=== PATIENT | female | born 1980 | race Caucasian/White ===

== ENCOUNTER 2017-05-16 16:32 | Emergency (ER) | payer MEDICAID ==
[~2017-05-16] VITALS: Ht 154.9 cm; Wt 80.9 kg
[~2017-05-16 16:32] MED LIST: [UNRECOGNIZED DRUG - REMARK]
[2017-05-16] MEDS ORDERED: ASPIRIN 325 MG TAB PO STA (16:49)
[2017-05-16 16:59] VITALS: Ht 154.9 cm; Wt 80.9 kg
[2017-05-16] MEDS ORDERED: KETOROLAC 30 MG INJ IV STA (17:22)
[2017-05-16] MEDS ORDERED: GABA100C14 PO (17:25)
[2017-05-16 17:33] LABS: BASOPHILS % 0.5 % (0.0-2.0); EOSINOPHILS # 0.2 10^3/ul (0.0-0.5); EOSINOPHILS % 2.5 % (0.0-7.0); HEMATOCRIT 35.6 % (37.0-47.0); HEMOGLOBIN 11.8 g/dl (12.0-16.0); LYMPHOCYTES # 1.9 10^3/ul (0.8-2.9); LYMPHOCYTES % 22.1 % (15.0-51.0); MEAN CORPUSCULAR HEMOGLOBIN 29.8 pg (29.0-33.0); MEAN CORPUSCULAR HGB CONC 33.1 g/dl (32.0-37.0); MEAN CORPUSCULAR VOLUME 89.9 fl (82.0-101.0); MEAN PLATELET VOLUME 11.3 fl (7.4-10.4); MONOCYTE # 0.6 10^3/ul (0.3-0.9); MONOCYTES % 6.4 % (0.0-11.0); NEUTROPHIL # 5.8 10^3/ul (1.6-7.5); NEUTROPHILS % 67.8 % (39.0-77.0); PLATELET COUNT 317 10^3/UL (140-415); RED BLOOD COUNT 3.96 10^6/ul (4.20-5.40); RED CELL DISTRIBUTION WIDTH 14.7 % (11.5-14.5); WHITE BLOOD COUNT 8.6 10^3/ul (4.8-10.8)
[2017-05-16] MEDS ORDERED: INSU100I27 SQ (17:53)
[2017-05-16] MEDS ORDERED: LANT3I SC (17:53)
[2017-05-16] MEDS ORDERED: SIMV20TA PO (17:53)
[2017-05-16 17:56] LABS: ANION GAP 9 (8-16); BLOOD UREA NITROGEN 25 mg/dl (7-20); CALCIUM 8.4 mg/dl (8.4-10.2); CARBON DIOXIDE 25 mmol/L (21-31); CHLORIDE 105 mmol/L (97-110); CREATININE 0.93 mg/dl (0.44-1.00); POTASSIUM 5.2 mmol/L (3.5-5.1); SODIUM 134 mmol/L (135-144)
[2017-05-16 18:00] LABS: GLUCOSE 408 mg/dl (70-220)
--- NOTE | 2017-05-16 18:07 | RADRPT ---
PROCEDURE: XR Chest. CLINICAL INDICATION: Chest pain. TECHNIQUE: Single frontal chest x-ray. COMPARISON: None. FINDINGS: The cardiomediastinal silhouette is unremarkable. There is no congestive heart failure.. No focal i nfiltrate is seen. There is no pleural effusion. There is no pneumothorax. The osseous structures are unremarkable. IMPRESSION: 1. No active disease. RPTAT: HMVK .John Yadav MD, MD Date Time Electronically viewed and signed by .John Yadav MD, MD on 05/16/2017 18:07 .K/
[2017-05-16 18:09] LABS: ADD UMIC YES; UR ASCORBIC ACID NEGATIVE (NEGATIVE); UR BACTERIA FEW /HPF (NONE SEEN); UR BILIRUBIN (Dip) NEGATIVE (NEGATIVE); UR BLOOD (Dip) 2+ mg/dL (NEGATIVE); UR CLARITY CLEAR (CLEAR); UR COLOR STRAW (YELLOW); UR GLUCOSE (Dip) 3+ mg/dL (NEGATIVE); UR KETONES (Dip) NEGATIVE (NEGATIVE); UR LEUKOCYTE ESTERASE (Dip) NEGATIVE Leu/ul (NEGATIVE); UR NITRITE (Dip) NEGATIVE (NEGATIVE); UR RBC 24 /HPF (0-5); UR SPECIFIC GRAVITY (Dip) 1.012 (1.003-1.030); UR TOTAL PROTEIN (Dip) 2+ mg/dl (NEGATIVE); UR UROBILINOGEN (Dip) NEGATIVE (NEGATIVE)
[2017-05-16 18:13] LABS: TROPONIN-I < 0.012 ng/ml (0.00-0.12)
--- NOTE | 2017-05-16 18:53 | ERA ---
ER Documentation Chief Complaint Date/Time DATE: 05/16/17 TIME: 18:47 Chief Complaint cp x 2 days; htn, hyperglycemia 449 blood sugar in the field HPI This is a 37-year-old female with a past medical history of hypertension, hyperlipidemia and poorly controlled diabetes who is presenting with worsening full body pains. The patient has had abdominal pain for 1-2 weeks. She was evaluated by her physician this week where she is found to have elevated blood sugar. She had suprapubic discomfort and a UA was ordered at that time. The patient's physician, Dr. Jaramillo actually called the emergency department today and said that her urine culture came back with 100,000 E. coli, consistent for urinary tract infection. There is question of whether this correlates with her increasing sugar. Her diabetic medications have not been changed recently. The patient has a secondary complaint of chronic unchanged bilateral lower extremity paresthesias, associated with her diabetic peripheral neuropathy. Lastly, she also endorses chest pain that started today. She states that she walks frequently and was walking out on the street today when she developed left -sided chest pain. It is nonradiating. It is moderate and aching in nature. She has never had this pain before. She has never had a heart attack or stroke. She denies family history. The patient endorses no headache or vision changes. She is mildly nauseated but has not vomited. She denies shortness of breath. She has had no changes to bowel movements. ROS All systems reviewed and are negative except as per history of present illness. Medications Home Meds Active Scripts Cephalexin* (Keflex*) 500 Mg Capsule, 500 MG PO BID for 7 Days, CAP Prov:GRACIE GIPSON MD 05/16/17 Reported Medications Simvastatin* (Zocor*) 20 Mg Tablet, 20 MG PO QHS, #30 TAB 05/16/17 Insulin Glargine* (Lantus*) 100 Unit/Ml Soln, 40 UNIT SC QHS, #1 VIAL 05/16/17 Insulin Detemir (Levemir Flextouch) 100 Unit/1 Ml Insuln.pen, 10 UNIT SQ BEFORE MEALS 05/16/17 Gabapentin* (Gabapentin*) 100 Mg Capsule, 200 MG PO TID, #180 CAP 05/16/17 Discontinued Reported Medications [diabetic pill] No Conflict Check 08/11/12 Allergies Allergies: Coded Allergies: No Known Drug Allergies (Verified Allergy, Unknown, 05/16/17) PMhx/Soc History of Surgery: No Anesthesia Reaction: No Hx Neurological Disorder: No Hx Respiratory Disorders: No Hx Cardiac Disorders: Yes (htn) Hx Psychiatric Problems: No Hx Miscellaneous Medical Probl: Yes (dm) Hx Alcohol Use: No Hx Substance Use: No Hx Tobacco Use: No Smoking Status: Never smoker FmHx Family History: diabetes, No coronary disease Physical Exam Vitals Vital Signs Date Time Temp Pulse Resp B/P Pulse Ox O2 Delivery O2 Flow Rate FiO2 05/16/17 23:06 91 18 154/88 100 Room Air 05/16/17 20:00 94 18 196/96 100 Room Air 05/16/17 19:00 97 15 190/95 100 Room Air 05/16/17 18:04 106 18 207/92 100 Room Air 05/16/17 16:59 98.2 107 18 194/96 99 Physical Exam Const: No apparent distress, well-nourished, well-developed Head: Atraumatic Eyes: Normal Conjunctiva ENT: Normal External Ears, Nose and Mouth. Neck: Full range of motion..~ No meningismus. Resp: Clear to auscultation bilaterally Cardio: Regular rhythm, sinus tachycardia, no murmurs Abd: Soft, non distended. suprapubic tenderness. Normal bowel sounds Skin: No petechiae or rashes Back: No midline or flank tenderness Ext: No cyanosis, or edema Neur: Awake and alert, strength, normal sensation Psych: anxious, normal Mood and Affect Result Diagram: 05/16/17 1720 05/16/17 1720 Results 24 hrs Laboratory Tests Test 05/16/17 16:50 05/16/17 17:20 05/16/17 19:02 Urine Color STRAW Urine Clarity CLEAR Urine pH 7.0 Urine Specific Avery 1.012 Urine Ketones NEGATIVEmg/dL Urine Nitrite NEGATIVEmg/dL Urine Bilirubin NEGATIVEmg/dL Urine Urobilinogen NEGATIVEmg/dL Urine Leukocyte Esterase NEGATIVELeu/ul Urine Microscopic RBC 24/HPF Urine Microscopic WBC 3/HPF Urine Bacteria FEW/HPF Urine Hemoglobin 2+mg/dL Urine Glucose 3+mg/dL Urine Total Protein 2+mg/dl White Blood Count 8.610^3/ul Red Blood Count 3.9610^6/ul Hemoglobin 11.8g/dl Hematocrit 35.6% Mean Corpuscular Volume 89.9fl Mean Corpuscular Hemoglobin 29.8pg Mean Corpuscular Hemoglobin Concent 33.1g/dl Red Cell Distribution Width 14.7% Platelet Count 57662^3/UL Mean Platelet Volume 11.3fl Neutrophils % 67.8% Lymphocytes % 22.1% Monocytes % 6.4% Eosinophils % 2.5% Basophils % 0.5% Nucleated Red Blood Cells % 0.0/100WBC Neutrophils # 5.810^3/ul Lymphocytes # 1.910^3/ul Monocytes # 0.610^3/ul Eosinophils # 0.210^3/ul Basophils # 0.010^3/ul Nucleated Red Blood Cells # 0.010^3/ul Sodium Level 134mmol/L Potassium Level 5.2mmol/L Chloride Level 105mmol/L Carbon Dioxide Level 25mmol/L Anion Gap 9 Blood Urea Nitrogen 25mg/dl Creatinine 0.93mg/dl Glucose Level 408mg/dl Calcium Level 8.4mg/dl Troponin I < 0.012ng/ml Bedside Glucose 295mg/dL Current Medications Medications (Trade) Dose Ordered Sig/Jose Route PRN Reason Start Time Stop Time Status Last Admin Dose Admin Aspirin (Aspirin) 325 mg ONCE STAT PO 05/16/17 16:49 05/16/17 17:00 DC 05/16/17 17:44 Ketorolac Tromethamine 30 mg 30 mg ONCE STAT IV 05/16/17 17:22 05/16/17 17:23 DC Sodium Chloride 1,000 ml @ 1,000 mls/hr Q1H ONCE IV 05/16/17 19:00 05/16/17 19:59 DC 05/16/17 19:05 Sodium Chloride (NS) 1,000 ml @ 1,000 mls/hr Q1H ONCE IV 05/16/17 19:00 05/16/17 19:59 DC 05/16/17 19:57 Insulin Human Regular 10 unit 10 unit ONCE ONCE SC 05/16/17 19:00 05/16/17 19:01 DC 05/16/17 19:04 Ceftriaxone Sodium (Rocephin) 50 ml @ 100 mls/hr ONCE ONCE IVPB 05/16/17 21:30 05/16/17 21:59 DC 05/16/17 21:56 Morphine Sulfate (morphine) 4 mg ONCE STAT IV 05/16/17 21:19 05/16/17 21:21 DC 05/16/17 21:56 Procedures/MDM MDM Patient's presentation warrants further investigation. A chest pain workup will be performed. There were also concerns of a urinary tract infection based on a culture that was completed by her primary care physician earlier this week. The patient has a tertiary complaint of chronic lower extremity pain. The patient is mildly tachycardic in the emergency department but she is quite uncomfortable related to her chronic pains. We will attempt to address her pain and will reevaluate her vital signs. LABS The patient's blood work was obtained and reviewed. The patient seemed shows no leukocytosis or left shift. The patient is afebrile, and I do not suspect a systemic infection. The patient is mildly anemic today, this does not require emergent treatment. The patient's platelet count is unremarkable. The patient' s CMP mild hyponatremia that does not need to be emergently treated as well as mild hyperkalemia that does not need to be emergently treated. The patient will receive IV fluids in the emergency department. The patient's renal function is unremarkable. The patient does have an elevated glucose at 408, but the anion gap is within normal limits and I do not suspect DKA. The patient 's hepatic function is unremarkable. The patient's troponin is negative. EKG EKG read by me: Rate/Rhythm: Regular rhythm, and his tachycardia at a rate of 104 Intervals: Normal [place]: Normal Impression: No evidence of acute ischemia Repeat EKG 20 minutes later also read by me: Rate/Rhythm: Regular rate and rhythm at a rate of 100 Intervals: Normal [place]: Normal Impression: No evidence of ischemia or arrhythmia IMAGING CXR FINDINGS: The cardiomediastinal silhouette is unremarkable. There is no congestive heart failure.. No focal infiltrate is seen. There is no pleural effusion. There is no pneumothorax. The osseous structures are unremarkable. IMPRESSION: No active disease. Electronically viewed and signed by .John Yadav MD, on 05/16/2017 18:07 TREATMENT/DISPOSITION With respect to the patient's chest pain I would give the patient a heart score of 2 for risk factors. The patient is less than 45. I have a low suspicion for a cardiac etiology. Your EKG shows no repolarization abnormalities and her troponin is negative. The patient's pain improved on its own in the emergency department prior to treatment for pain control of her lower extremity pain. The patient may require an outpatient stress test, but this decision will be deferred to her primary care physician. The patient understands the need to follow-up with her primary care doctor in 1-3 days for reevaluation of her chest pain. With respect to the patient's urinary tract infection, the patient's urinalysis is equivocal here today. However, in speaking with her primary care physician, Dr. Jaramillo, she reportedly had a culture that grew 100,000 E. coli. We will give the patient a gram of Rocephin in the emergency department and will send her home with a prescription for antibiotics. The patient should follow-up with her primary care physician for this as well. The patient has been having issues with hypoglycemia as well. The patient's primary care physician is concerned that her UTI could be elevated her sugar. The patient was given IV fluids in the emergency department in addition to 10 units of insulin which did not bring her sugars down. She does not have an anion gap, and I do not suspect DKA. This may be treated further as an outpatient. With respect to the patient's lower extremity pain, she has a history of peripheral neuropathy and is currently on gabapentin. She reports that this pain is unchanged and that she has had it for several years. The patient was given 1 dose of morphine in the emergency department with significant improvement of her pain. She was educated on the need to discuss further options of pain control with her primary care physician as the emergency department is not an appropriate place to receive prescriptions for chronic pain control. The patient does not have lower extremity edema. She has negative Homans sign. She has not had any recent travel. She is not on hormone replacement. She was mildly tachycardic, but this resolved after we controlled her lower extremity pain. The patient does not endorse pleuritic chest pain. I have low suspicion for DVT or PE. At this time, the patient is stable for discharge. She will be given precautions with which to return to the emergency department. Departure Diagnosis: Primary Impression: Hypertension Qualified Code: I10 - Hypertension, unspecified type Additional Impressions: Chest pain Qualified Code: R07.9 - Chest pain, unspecified type Hyperglycemia Peripheral neuropathic pain UTI (urinary tract infection) Qualified Code: N39.0 - Urinary tract infection without hematuria, site unspecified Condition: GRACIE Rachel MD 22, 2017 18:53
[2017-05-16] MEDS ORDERED: SOD CHLORIDE 0.9% 1,000 ML IV ONE ×2 (19:00)
[2017-05-16] MEDS ORDERED: INSULIN REGULAR, HUMAN 100 UNIT/1 ML 3ML VIAL SC ONE (19:00)
[2017-05-16] MEDS ORDERED: morphine 4 MG/ML VIAL IV STA (21:19)
[2017-05-16] MEDS ORDERED: CEFTRIAXONE 1 GM/50 ML (PMX) 50 ML IVPB ONE (21:30)
[2017-05-16] MEDS ORDERED: CEPH-443 PO (23:00)
[2017-05-16 23:06] VITALS: BP 154/88; PULSE 91; RESP 18
== END 2017-05-16 23:08 | disposition home or self-care (01) ==
LOC: E/R 16:32
DX: I10 Essential (primary) hypertension (principal); E11.65 Type 2 diabetes mellitus with hyperglycemia; M79.2 Neuralgia and neuritis, unspecified; N39.0 Urinary tract infection, site not specified; Z79.4 Long term (current) use of insulin
CPT/HCPCS: 36415; 71010; 80048; 81001; 82962; 84484; 85025; 96372; 96374; 96375; J0696; J1815; J2270; J7030; Z7502; Z7610; 93005